=== PATIENT | female | born 1965 | race African-American/Black ===

== ENCOUNTER 2019-09-17 01:30 | Emergency (ER) | payer OTHER ==
[2019-09-17 02:37] VITALS: TEMP 98; BMI 33.3
--- NOTE | 2019-09-17 03:59 | PDOC ---
Attending Attestation - Resident Resident Name: Davy Florian - ED Attending Attestation I have performed the following: I have examined & evaluated the patient, The case was reviewed & discussed with the resident, I agree w/resident's findings & plan - HPI HPI: 09/17/19 05:38 see resident hpi - Physicial Exam PE: 09/17/19 05:38 see resident exam - Medical Decision Making 09/17/19 05:38 54-year-old female with positional anterior chest wall pain Patient states it is likely related to having to stay her car without power steering Pain is been present for 4 days and is completely reproducible on palpation and rotation of the torso Plan for chest x-ray, EKG and labs including troponin We will DC on NSAIDs if work-up negative
--- NOTE | 2019-09-17 04:26 | PDOC ---
History of Present Illness - General Chief Complaint: Chest Pain Stated Complaint: CHEST PAIN Time Seen by Provider: 09/17/19 03:52 History Source: Patient Exam Limitations: No Limitations - History of Present Illness Initial Comments: 09/17/19 04:09 HPI: 54yo F with no PMH presenting with chest pain for 4 days. Pain is substernal, sharp pressure that is constantly present but increases in waves, progressively worsening over the past 4 days. She denies having any pains like this before. 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 Worse with certain movements, relieved by ibuprofen. No associated palpitations, SOB, diaphoresis, nausea, vomiting. No recent illness, fevers, chills, diarrhea, sick contacts, travel, estrogen containing medications. No back pain, no hypertension. No family history of early unexplained deaths. No personal history of blood clots. Power steering recently went out on her car. All: NKDA Meds: Denies PMH: Denies PSH: Denies SHx: Denies toxic habits Past History - Travel Traveled outside of the country in the last 30 days: No Close contact w/someone who was outside of country & ill: No - Past Medical History Allergies/Adverse Reactions: Allergies Allergy/AdvReac Type Severity Reaction Status Date / Time shellfish derived Allergy Verified 09/17/19 02:38 - Psycho Social/Smoking Cessation Hx Smoking History: Never smoked Hx Alcohol Use: No Drug/Substance Use Hx: No Review of Systems - Review of Systems Able to Perform ROS?: Yes Is the patient limited Georgian proficient: Yes Constitutional: No: Chills, Fever, Weakness HEENTM: No: Recent change in vision, Nose Congestion, Throat Pain Respiratory: No: Cough, Shortness of Breath, Wheezing Cardiac (ROS): Yes: Chest Pain. No: Edema, Irregular Heart Rate, Lightheadedness, Palpitations, Syncope, Chest Tightness ABD/GI: No: Constipated, Diarrhea, Nausea, Poor Appetite, Poor Fluid Intake, Vomiting : No: Burning, Dysuria, Discharge, Frequency Musculoskeletal: No: Muscle Pain, Muscle Weakness Integumentary: No: Erythema, Pruritus, Rash, Sweating Neurological: No: Headache, Numbness, Tingling, Weakness Psychiatric: No: Stressors, Change in Appetite Endocrine: No: Increased Thirst, Increased Urine Hematologic/Lymphatic: No: Anemia, Blood Clots, Easy Bleeding All Other Systems: Reviewed and Negative *Physical Exam - Vital Signs Last Vital Signs Temp Pulse Resp BP Pulse Ox 98 F 67 20 147/73 98 09/17/19 01:35 09/17/19 01:35 09/17/19 01:35 09/17/19 01:35 09/17/19 01:35 - Physical Exam 09/17/19 04:28 Vitals reviewed, AFVSS GEN: Well appearing, appears stated age, NAD, comfortable. AAOx3. HEENT: NCAT, EOMI, PERRL. Sclera anicteric, noninjected. No facial asymmetry. Moist mucous membranes. Normal voice. Trachea midline. CV: RRR, S1/S2, no murmurs / rubs / gallops appreciated. +Tender chest wall. LUNG: CTAB, normal work of breathing. No wheezes, rales, rhonchi. No cough. Speaking full sentences. GI: Soft, NTND, +BS, no guarding, no rebound. No masses. Neg CVAT b/l. EXTREMITIES: 2+ distal pulses. No LE edema. No obvious deformities of all extremities. SKIN: Warm, dry, no rashes appreciated, non-jaundiced. PSYCH: Normal mood and affect. Cooperative and appropriate. NEURO: CN grossly intact. Moving all extremities well. Normal strength and sensation grossly. Heart Score/ECG Review - History History: Slightly suspicious - Electrocardiogram EKG: Normal - Age Age: 45-65 - Risk Factors Based on the list above the patient has:: No risk factors known - Troponin Troponin: </= normal limit - Score Heart Score - Total: 1 ED Treatment Course - LABORATORY CBC & Chemistry Diagram: 09/17/19 05:00 09/17/19 06:00 Medical Decision Making - Medical Decision Making 09/17/19 04:30 54yo F with no PMH presenting with chest pain for 4 days. Exam with stable vitals, reproducible pain. Most c/w costochondritis or chest wall strain, also concerning for ACS (HEART SCORE 1, will obtain 1 troponin), pericarditis, less likely PNA, PTX, unlikely dissection, PE. - CBC, CMP, Cardiac - EKG, CXR 09/17/19 06:03 - CMP / cardiac cancelled by lab - Redrawn and sent - Continued pain, toradol 15 mg ordered - CXR without infiltrate, effusion, PTX 09/17/19 06:47 - Normal electrolytes - Negative troponin Dispo: Home Discharge - Discharge Information Problems reviewed: Yes Clinical Impression/Diagnosis: Chest wall muscle strain Qualifiers: Encounter type: initial encounter Qualified Code(s): S29.011A - Strain of muscle and tendon of front wall of thorax, initial encounter Condition: Fair Disposition: HOME - Admission No - Follow up/Referral - Patient Discharge Instructions Patient Printed Discharge Instructions: DI for Atypical Chest Pain, DI for Costochondritis Additional Instructions: Continue to take motrin for your pain as prescribed on the bottle. Please follow up with your primary care doctor if your pains continue. Return to the ED for any new or concerning symptoms. - Post Discharge Activity
[2019-09-17 05:25] LABS: BASO % 0.8 % (0-2.0); EOS % 3.9 % (0-4.5); HEMATOCRIT 37.9 % (32.4-45.2); HEMOGLOBIN 12.7 GM/dL (10.7-15.3); LYMPH % 32.5 % (8-40); MCH 27.9 pg (25.7-33.7); MCHC 33.5 g/dl (32.0-36.0); MEAN CELL VOLUME 83.2 fl (80-96); MEAN PLT VOLUME 8.7 fl (7.5-11.1); MONO % 6.6 % (3.8-10.2); NEUT % 56.2 % (42.8-82.8); PLATELET COUNT 155 K/MM3 (134-434); RBC 4.55 M/mm3 (3.60-5.2); RDW 14.9 % (11.6-15.6)
[2019-09-17] MEDS ORDERED: KETOROLAC TROMETHAMINE 15 MG/ML VIAL IVPUSH ONE (06:05)
[2019-09-17] MEDS ORDERED: KETOROLAC TROMETHAMINE 15 MG/ML VIAL ONE (06:14)
[2019-09-17 06:22] VITALS: BP 140/72; PULSE 70
[2019-09-17 06:43] LABS: ALBUMIN 3.6 g/dl (3.4-5.0); ALK PHOS 77 U/L (45-117); ANION GAP 5 MMOL/L (8-16); BILIRUBIN,TOTAL 0.5 mg/dL (0.2-1); BLOOD UREA NITROGEN 11.9 mg/dL (7-18); CHLORIDE 110 mmol/L (98-107); CO2 29 mmol/L (21-32); CREATININE 0.8 mg/dL (0.55-1.3); GLUCOSE,RANDOM 94 mg/dL (74-106); SGOT/AST 14 U/L (15-37); SGPT/ALT 18 U/L (13-61); SODIUM 144 mmol/L (136-145)
--- NOTE | 2019-09-17 13:01 | EKG ---
Test Reason : Blood Pressure : / mmHG Vent. Rate : 058 BPM Atrial Rate : 058 BPM P-R Int : 194 ms QRS Dur : 074 ms QT Int : 422 ms P-R-T Axes : 063 041 046 degrees QTc Int : 414 ms SINUS BRADYCARDIA CANNOT RULE OUT ANTERIOR INFARCT (CITED ON OR BEFORE 16-JUL-2010) ABNORMAL ECG Confirmed by Tani Goins MD ([id number]) on 09/17/2019 1:01:28 PM Referred By: Confirmed By:Tani Goins MD
== END 2019-09-17 07:28 | disposition home or self-care (01) ==
LOC: JER 01:30
PROC: 3E0333Z Introduction of Anti-inflammatory into Peripheral Vein, Percutaneous Approach (ICD-10-PCS; principal; 2019-09-17)
DX: S29.011A Strain of muscle and tendon of front wall of thorax, initial encounter (principal); X58.XXXA Exposure to other specified factors, initial encounter; Y93.89 Activity, other specified; Y92.89 Other specified places as the place of occurrence of the external cause; Y99.8 Other external cause status; Z91.013 Allergy to seafood
CPT/HCPCS: 36415; 71045-TC-FY; 80053; 82550; 82553; 84484; 85025; 93005; 93010; 96374; 99285-25

== ENCOUNTER 2020-09-14 12:44 | Emergency (ER) | payer SELFPAY ==
[2020-09-14 13:05] VITALS: BP 136/73; PULSE 72; TEMP 98.3; BMI 34.9
== END 2020-09-14 14:06 | disposition home or self-care (01) ==
LOC: JER 12:44
DX: Z11.52 Encounter for screening for COVID-19 (principal)
CPT/HCPCS: 93005; 93010; G2012-GT

== ENCOUNTER 2022-10-04 04:59 | Day surgery (SDC) | payer OTHER ==
[2022-10-03 11:17] VITALS: BMI 36.4
[2022-10-04 15:54] VITALS: TEMP 98
[2022-10-04 16:29] VITALS: BP 109/49; PULSE 49; RESP 16
== END 2022-10-04 16:50 | disposition home or self-care (01) ==
LOC: JASU-ENDO 04:59
PROVIDERS: ATTEND Student in an Organized Health Care Education/Training Program
PROC: 0DBL8ZZ Excision of Transverse Colon, Via Natural or Artificial Opening Endoscopic (ICD-10-PCS; principal; 2022-10-04 14:00)
DX: Z12.11 Encounter for screening for malignant neoplasm of colon (principal); D12.3 Benign neoplasm of transverse colon; K57.30 Diverticulosis of large intestine without perforation or abscess without bleeding
CPT/HCPCS: 88305-TC